=== PATIENT | male | born 1970 | race Caucasian/White ===

== ENCOUNTER → 2020-10-16 16:32 | Outpatient (CLI) | payer OTHER, SELFPAY ==
[2020-10-16 17:29] LABS: COVID19 -Nasal RAPID Negative (Negative)
== END ==
PROVIDERS: PCP Student in an Organized Health Care Education/Training Program; Visit Provider Physician Assistant
DX: Z20.822 Contact with and (suspected) exposure to COVID-19 (principal)
CPT/HCPCS: 87635

== ENCOUNTER 2020-10-18 13:30 | Day surgery (SDC) | payer OTHER, SELFPAY ==
--- NOTE | 2020-10-18 08:14 | P.HP_ITS ---
History of Present Illness History of Present Illness Date Patient Seen: 10/18/20 Chief complaint: SCREENING COLONOSCOPY Narrative: 50 Years Old Male seen today for consideration of a screening colonoscopy. There have been no lower GI symptoms suggesting disease such as change in bowel habits, bleeding, abdominal pain or anemia. There's been no family history of colon cancer or colon polyps. Overall health issues have been stable, including no major cardiac events for at least 6 weeks. Past Medical History: Plantar fasciitis history HYPERLIPIDEMIA ASTHMA, PERSISTENT, MODERATE Kleine-Dela Cruz syndrome SLEEP APNEA, OBSTRUCTIVE GOUT Obesity MOOD DISORDER SITUATIONAL STRESS ALLERGIC RHINITIS, SEASONAL VITAMIN D DEFICIENCY Non-drinker Past Surgical History: Appendectomy (08/2000) hernia 1977 Family History: Father: Rheumatoid arthritis Mother: Diabetes, Hypertension Siblings: Family Hx Diabetes Social History: Reviewed history from 08/14/2020 and no changes required: Marital Status: Leisa, 12/21/[birth year]-. Newly engaged. 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 Household Members: 3 daughters Meds Home Medications and Allergies Home Medications Medication Instructions Recorded Confirmed Type multivitamin [Multiple Vitamins] 1 tab PO QDAY #0 08/23/16 10/18/20 History cholecalciferol (vitamin D3) 100 mcg PO DAILY 10/18/20 10/18/20 History [Vitamin D3] fluoxetine 1 mg PO DAILY 10/18/20 10/18/20 History turmeric 3,000 mg PO DAILY 10/18/20 10/18/20 History Allergies Allergy/AdvReac Type Severity Reaction Status Date / Time carbamazepine Allergy Intermediate Unverified 10/18/20 14:02 Review of Systems Review of Systems ROS: Yes All systems reviewed with the patient and are negative except as otherwise documented Exam Narrative Exam Narrative: General: well developed, well nourished, in no acute distress, Head: normocephalic and atraumatic, Lungs: normal respiratory effort, clear bilaterally to auscultation, no wheezes rales or rhonchi. (unchanged from 08/14/2020) Heart: normal rate and regular rhythm, no murmurs, rubs, gallops, or clicks, Abdomen: abdomen soft and non-tender without masses, organomegaly, or abdominal wall hernias, bowel sounds positive. (unchanged from 08/14/2020) Skin: intact without suspicious lesions or rashes, Psych: alert and cooperative; normal mood and affect; normal attention span and concentration; cognition, remote and recent memory appear to be intact, Assessment & Plan Assessment & Plan narrative: 1. Screening for colon cancer Plan for colonoscopy. The nature and character of the procedure as well as anticipated results were discussed. The possibility of not completing the procedure was also discussed. Possible complications including aspiration pneumonia, bleeding, perforation and reaction to medications either for sedation or preparation and missed lesions were discussed. Questions were answered and proceeding to the colonoscopy was elected. Informed consent signed. I sincerely appreciate the referral allowing me to participate in this patient's care. Please contact me with any questions or concerns.
--- NOTE | 2020-10-18 08:15 | PM.OP.ENDO ---
Operative Date/Time/Diagnoses Date of procedure: 10/18/20 Procedure Notes SCOAP/Timeout: 2:28 p.m. Procedure in detail: ENDOSCOPIST: Winifred Mcintyre MD Sedation RN: César Gorman RN Sedation start time: 2:29 p.m. Sedation end time: 2:46 p.m. PROCEDURE: Colonoscopy INDICATIONS: 1. Screening for colon cancer MEDICATION: Levsin 0.125 mg sublingual, incremental doses of Versed and fentanyl until appropriate level sedation achieved. ASA CLASS: 2 CECAL WITHDRAWAL TIME: 10 minutes COMPLICATIONS: None. EXTENT OF PROCEDURE: Cecum. QUALITY OF PREP: Good with portions of liquid stool. PROCEDURE: Prior to insertion of the colonoscope, a digital rectal examination was accomplished with circumferential palpation of the distal rectal mucosa without significant findings being noted. The high-definition colonoscope was passed into the rectum in the usual fashion and advanced over to the cecum without difficulty. The ileocecal valve, appendiceal stoma, and medial wall all could be inspected and no abnormalities were seen. ASCENDING COLON: As the colonoscope was withdrawn, care was taken to expose and inspect the haustral folds and no abnormalities were seen. HEPATIC FLEXURE: Normal, no polyps, diverticula or other abnormalities. TRANSVERSE COLON: Normal, no polyps, diverticula or other abnormalities. DESCENDING COLON: Normal, no polyps, diverticula or other abnormalities. SIGMOID COLON: Normal, no polyps, diverticula or other abnormalities. RECTUM: Normal. J maneuver was produced. There was no significant perianal disease. The J maneuver was broken. The remainder of the rectum was inspected and there was no external hemorrhoid disease. The scope was withdrawn. IMPRESSION: 1. Normal colonoscopy PLAN: 1. Repeat colonoscopy in 10 years. The possibility of a missed lesion including a malignancy has been discussed with the patient previously. Potential alarm symptoms have been discussed and should be reported immediately.
[2020-10-18 14:11] VITALS: BP 150/96; PULSE 74; RESP 14; TEMP 36.2; O2SAT 97; BMI 79.0
[2020-10-18] MEDS: HYOSCYAMINE 0.125 MG TABLET PO (14:20)
[2020-10-18] MEDS: LACTATED RINGERS 1,000 ML 200 ML IV (14:21)
[2020-10-18] MEDS: MIDAZOLAM 5 MG/5 ML VIAL IV (14:29)
[2020-10-18] MEDS: fentaNYL 250 MCG/5 ML INJ IV (14:35)
[2020-10-18 14:51] VITALS: BP 132/89; PULSE 83; RESP 16; TEMP 36.6; O2SAT 94
[2020-10-18 14:57] VITALS: BP 126/90; PULSE 80; RESP 16; O2SAT 95
[2020-10-18 15:02] VITALS: BP 135/86; PULSE 71; RESP 16; TEMP 36.1; O2SAT 95
== END 2020-10-18 15:12 | disposition home or self-care (01) ==
PROVIDERS: PCP Student in an Organized Health Care Education/Training Program; Referring Provider Student in an Organized Health Care Education/Training Program; Visit Provider Student in an Organized Health Care Education/Training Program
PROC: 0DJD8ZZ Inspection of Lower Intestinal Tract, Via Natural or Artificial Opening Endoscopic (ICD-10-PCS; CPT 45378; principal; 2020-10-18 14:30)
DX: Z12.11 Encounter for screening for malignant neoplasm of colon (principal); J45.909 Unspecified asthma, uncomplicated; G47.33 Obstructive sleep apnea (adult) (pediatric); E66.9 Obesity, unspecified
CPT/HCPCS: 45378; J2250; J3010

== ENCOUNTER → 2021-01-17 14:54 | Outpatient (CLI) | payer OTHER, SELFPAY ==
[2021-01-17] MEDS: COVID-19 VACC, Ad26(JANSSEN)/PF 0.5 ML IM (15:03)
== END ==
PROVIDERS: PCP Student in an Organized Health Care Education/Training Program; Visit Provider Internal Medicine
DX: Z23 Encounter for immunization (principal)
CPT/HCPCS: 0031A; 91303

== ENCOUNTER → 2022-03-13 11:24 | Outpatient (CLI) | payer OTHER, SELFPAY ==
[2022-03-13 11:58] LABS: Add Manual Diff / Slide Review NO; Basophils Absolute Auto 0 /uL (0-100); Basophils Percent Auto 0.6 % (0-2); Eosinophils Absolute Auto 100 /uL (0-450); Eosinophils Percent Auto 1.3 % (2-4); Hematocrit 47.9 % (41-53); Hemoglobin 16.6 g/dL (13.5-17.5); Lymphocytes Absolute Auto 1800 /uL (1100-4500); Lymphocytes Percent Auto 34.3 % (25-40); Mean Corpuscular HGB Conc 34.6 % (30-36); Mean Corpuscular Hemoglobin 30.5 PG (26-34); Mean Corpuscular Volume 88.2 fL (80-100); Monocytes Absolute Auto 600 /uL (0-900); Monocytes Percent Auto 11.3 % (3-14); Neutrophils Absolute Auto 2700 /uL (1500-7000); Neutrophils Percent Auto 52.5 % (50-75); Platelet Count 190 X10^3/uL (150-400); Red Blood Cell Count 5.44 X10^6/uL (4.5-5.9); Red Cell Distribution Width 13.1 % (11.6-14.8); White Blood Cell Count 5.1 X10^3/uL (4.5-11.0)
[2022-03-13 13:09] LABS: Alanine Aminotransferase 56 IU/L (<50); Albumin 4.5 g/dL (3.5-5.0); Albumin Globulin Ratio 1.5 (1.0-2.8); Alkaline Phosphatase 55 U/L (38-126); Aspartate Aminotransferase 44 IU/L (17-59); Blood Urea Nitrogen 16 mg/dL (9-20); Carbon Dioxide 30 mmol/L (22-32); Chloride 101 mmol/L (98-107); Estimated Glomerular Filt Rate > 60 mL/min (>60); Glucose 127 mg/dL (70-100); HEMOLYSIS < 15 (0-50); Potassium 4.3 mmol/L (3.4-5.1); Sodium 138 mmol/L (137-145); Total Protein 7.5 g/dL (6.3-8.2)
[2022-03-13 13:40] LABS: Prostate Specific Antigen Scrn 0.251 ng/mL (0.1-4.0)
[2022-03-26 17:10] LABS: Vitamin D 25 Hydroxy (D3) 59.6 ng/mL (30.0-100.0)
== END ==
PROVIDERS: PCP Family Medicine; Referring Provider Family Medicine; Visit Provider Family Medicine
DX: E66.9 Obesity, unspecified (principal); Z12.5 Encounter for screening for malignant neoplasm of prostate; E55.9 Vitamin D deficiency, unspecified
CPT/HCPCS: 36415; 80053; 82306; 83036; 84443; 85025; G0103

== ENCOUNTER → 2022-06-09 14:54 | Outpatient (CLI) | payer OTHER, SELFPAY ==
--- NOTE | 2022-06-17 11:29 | DIAB.MNT ---
Initial Diabetes Medical Nutrition Therapy Assessment Name: Franco Zapien Date: 06/09/22 Time: 305-405p Dx: Type II Diabetes Provider: Elizabeth Florentino Learning Style: Franco presents today for initial visit regarding new dx of T2DM. +FH of DM with mother. 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 His currently lives separately temporarily for her child?s school. She helps him with meals on weekends. Endorses struggling with cooking for himself. States though his is very supportive and healthy, he feels he is ?not a veggie eater?. Has reduced sugar intake opting for sf candy. Supplements with Metamucil for fiber Recent change in custody of his children to their mother. States he should be able to better control what foods are available in the home. Diet Recall: Wakes at 530acoffee with 1/4-1/3 sweetened creamer 1130a:meat, cheese, ww bread, low carb somali yogurt, 1c peaches, nuts, cheese, cranberries, and apple or banana (80-100g CHO) 2-3p: nothing or bar (20-30g CHO) 6-7p: frozen dinners or [employer] lasagna x 3c or 2 corndog with chili and 16oz milk or cereal (45-90g CHO) Snack: nothing or sf chocolate Beverages: 26oz x 2 water, sf soda, milk q other day Anthropometrics: Ht: 69 Wt: 255.7# Repors -12# since Ozempic and diet changes, though feels he is at a plateau. Physical Activity: States he knows with his job he must make effort to be active. Reports 1-2 mi walks q day at work on a track. 2mi walks with dog daily + yardwork. Averages 6000 steps per day in May. Today 7600 steps. Self-Monitoring Blood Glucose: Checking FBG only. All in goal. No pc readings for review. Recent FB, 119, 120, 116, 116, 99, 118 (today). One pre dinner of 104 mg/dL yesterday. Diabetes Medications: 500mg Metformin ER HS Ozempic 0.5 mg per week (feeling nausea and some constipation) Pertinent Labs: 03/30 hgA1c 7% Nutrition Rx: Carbohydrates: Meal: 45-60g Snack:15-30g Nutrition Diagnosis: - Excessive CHO intake r/t long period before eating first meal and nutrition knowledge deficit aeb diet recall and pt report - Self monitoring deficit r/t knowledge deficit aeb no pc readings Intervention: This participant was very receptive. Provided appropriate educational handouts. Discussed the following topics: Completed intake assessment. Discussed barriers to care. Pathophysiology of T2DM HgA1c, its correlation to blood glucose numbers, and rationale for goal Importance of self-monitoring, how often, and when to check. Suggested checking at different times to evaluate meals Plate Method, impact of macronutrients on blood sugar, meal timing, carbohydrate counting, pairing macronutrients and spreading out carbohydrates for better blood glucose management Recommended servings for carbohydrates at meals and snacks Heart health nutrition Vegetables he enjoys and ways to incorporate Brainstormed appropriate meal plan based on food preferences Role of physical activity and following provider guidelines for safety Created SMART goals for patient self-care and success. Goals: Measure carb portions Add morning snack to reduce time before first meal Check some 1-2 hr pc readings Add vegetables to dinner Follow-up: [facility] follow-up in 2-3 weeks Eva Tyson RDN, JOSEPH Certified Diabetes Care and Embryology Professor P: [phone] Thank you for this referral
== END ==
PROVIDERS: PCP Family Medicine; Referring Provider Family Medicine; Visit Provider Family Medicine
DX: E11.9 Type 2 diabetes mellitus without complications (principal); Z79.84 Long term (current) use of oral hypoglycemic drugs; Z71.3 Dietary counseling and surveillance; Z79.85 Long-term (current) use of injectable non-insulin antidiabetic drugs
CPT/HCPCS: 97802

== ENCOUNTER 2022-10-08 21:39 | Emergency (ER) | payer OTHER, SELFPAY ==
[2022-10-08 21:48] VITALS: BP 195/101; PULSE 72; RESP 20; TEMP 36.3; O2SAT 98; BMI 34.5
[2022-10-08] MEDS: ONDANSETRON 4 MG/2 ML INJ IV (22:09)
[2022-10-08 22:15] LABS: Add Manual Diff / Slide Review NO; Basophils Absolute Auto 0 /uL (0-100); Basophils Percent Auto 0.2 % (0-2); Eosinophils Absolute Auto 0 /uL (0-450); Eosinophils Percent Auto 0.1 % (2-4); Hematocrit 48.2 % (41-53); Hemoglobin 16.5 g/dL (13.5-17.5); Lymphocytes Absolute Auto 1000 /uL (1100-4500); Lymphocytes Percent Auto 8.1 % (25-40); Mean Corpuscular HGB Conc 34.2 % (30-36); Mean Corpuscular Hemoglobin 29.9 PG (26-34); Mean Corpuscular Volume 87.2 fL (80-100); Monocytes Absolute Auto 800 /uL (0-900); Monocytes Percent Auto 6.4 % (3-14); Neutrophils Absolute Auto 10600 /uL (1500-7000); Neutrophils Percent Auto 85.2 % (50-75); Platelet Count 182 X10^3/uL (150-400); Red Blood Cell Count 5.53 X10^6/uL (4.5-5.9); Red Cell Distribution Width 13.3 % (11.6-14.8); White Blood Cell Count 12.5 X10^3/uL (4.5-11.0)
[2022-10-08 22:26] LABS: Alanine Aminotransferase 31 IU/L (<50); Albumin 4.9 g/dL (3.5-5.0); Albumin Globulin Ratio 1.4 (1.0-2.8); Alkaline Phosphatase 53 U/L (38-126); Aspartate Aminotransferase 34 IU/L (17-59); BUN Creatinine Ratio 18.6 (6-22); Bilirubin Total 1.2 mg/dL (0.2-1.3); Blood Urea Nitrogen 19 mg/dL (9-20); Calcium 9.4 mg/dL (8.4-10.2); Carbon Dioxide 27 mmol/L (22-32); Chloride 100 mmol/L (98-107); Estimated Glomerular Filt Rate > 60 mL/min (>60); Globulin 3.4 g/dL (1.7-4.1); Glucose 149 mg/dL (70-100); HEMOLYSIS 18 (0-50); Lipase 99 U/L (23-300); Sodium 137 mmol/L (137-145); Total Protein 8.3 g/dL (6.3-8.2)
[2022-10-08] MEDS: KETOROLAC 30 MG/ML VIAL 15 MG IV (22:52)
[2022-10-08] MEDS: SODIUM CHLORIDE 0.9% 1,000 ML 1000 ML IV (22:52)
--- NOTE | 2022-10-08 23:08 | DI.CT.S_ITS ---
PROCEDURE: CT KIDNEY URETER BLADDER (KUB) INDICATIONS: severe R flank pain TECHNIQUE: Axial sections were acquired from the lung bases to the pubic symphysis. Coronal and sagittal reformats were performed. For radiation dose reduction, the following was used: automated exposure control, adjustment of mA and/or kV according to patient size. COMPARISON: None. FINDINGS: Image quality: Excellent. Lung bases: There is minimal atelectasis. Heart: Heart is normal in size. URINARY: Right Kidney and Ureter: There is a 0.2 cm stone within the distal right ureter with associated right hydroureteronephrosis as well as perinephric and periureteral fat stranding. No additional renal stones identified. Left Kidney and Ureter: No stones. There is mild nonspecific perinephric stranding. No hydroureter. Bladder: Urinary bladder is partially distended. No stones. ABDOMEN: Liver: Noncontrast evaluation of the liver demonstrates no discrete mass. Gallbladder: Within normal limits without calcified gallstones. Biliary ducts: No biliary ductal dilatation. Pancreas: Unremarkable. Spleen: Normal in size. Adrenal Glands: No adrenal nodules. Stomach and Bowel: Stomach, small bowel loops, and colon are normal in caliber and wall thickness. No pericecal inflammatory changes to suggest appendicitis. Peritoneum: No abnormal intraperitoneal fluid. No free air. Ventral Wall: No hernia. Abdominal Nodes: No retroperitoneal or mesenteric adenopathy by size criteria. Vessels: Aorta and inferior vena cava are normal in size. PELVIS: Pelvic Organs: Unremarkable. Pelvic Nodes: No enlarged lymph nodes. Miscellaneous: No inguinal hernias identified. Bones: Visualized osseous structures demonstrate no suspicious focal lesions. IMPRESSION: 1. Obstructing urinary stone in the distal right ureter with associated mild right hydroureteronephrosis. Dictated by: Chang Paula M.D. on 10/09/2022 at 0:06 Approved by: Chang Paula M.D. on 10/09/2022 at 0:10
[2022-10-08] MEDS: LIDOCAINE 2% (PF) 8 ML in SODIUM CHLORIDE 0.9% 50 ML 348 ML IV (23:32)
--- NOTE | 2022-10-09 00:11 | ED.ABDPAIN ---
HPI - Abdominal Pain General Chief Complaint: Abdominal Pain Stated Complaint: rt sided abd pain Time Seen by Provider: 10/08/22 22:17 Source: patient Mode of arrival: Ambulatory History of Present Illness HPI narrative: 52-year-old male nonsmoker with noncontributory medical history presents with his significant other and a chief complaint of colicky type right flank pain over the course of the day. He denies any obvious provocation or palliation. He does state that it radiates around his right side on occasion. He does state that he has been urinating more than normal. He is had no fever or chills. He has been nauseated but denies any vomiting. He denies any diarrhea or constipation. Related Data Home Medications Medication Instructions Recorded Confirmed multivitamin (Multiple Vitamins 1 tab PO QDAY ##0 08/23/16 10/18/20 tablet) cholecalciferol (vitamin D3) 100 100 mcg PO DAILY 10/18/20 10/18/20 mcg (4,000 unit) capsule (Vitamin D3) fluoxetine 20 mg capsule 1 mg PO DAILY 10/18/20 10/18/20 turmeric 400 mg capsule 3,000 mg PO DAILY 10/18/20 10/18/20 Previous Rx's Medication Instructions Recorded hydrocodone 5 mg-acetaminophen 325 1 tab PO Q4-6H PRN pain #10 tabs 10/09/22 mg tablet ketorolac 10 mg tablet 10 mg PO Q6H PRN pain #14 tabs 10/09/22 ondansetron 4 mg disintegrating 4 mg PO TID-QID PRN nausea and 10/09/22 tablet vomiting #10 tabs tamsulosin 0.4 mg capsule (Flomax) 0.4 mg PO DAILY #30 caps 10/09/22 Allergies Allergy/AdvReac Type Severity Reaction Status Date / Time carbamazepine Allergy Intermediate Verified 10/08/22 22:08 Review of Systems Review of Systems Narrative: GENERAL: Denies chills, fatigue, malaise, fever, sweats. HEENT: Denies sinus pain, ear pain, sore throat, difficulty swallowing, dizziness. RESPIRATORY: Denies dyspnea, cough, wheezing, hemoptysis, sputum. CARDIOVASCULAR: Denies chest pain, palpitations, orthopnea, edema, GASTROINTESTINAL: Denies nausea, vomiting, abdominal pain, diarrhea, constipation, melena. : See HPI MUSCULOSKELETAL: See HPI SKIN: Denies rash, skin lesions, or other NEUROLOGIC: Denies weakness, headache, numbness, change in speech, confusion, seizures, incoordination. PSYCHIATRIC: No concerning psychosocial issues. 12 point review of systems is negative except for those stated above Patient History Social History (System 01/15/21 @ 10:38 by Coral Lopez) household members: other Smoking Status: Never smoker alcohol intake: never Smoking Status: Never smoker alcohol intake frequency: 0-2 drinks per day Substance Use Type: does not use Exam Initial Vital Signs Initial Vital Signs: Vital Signs Temperature 97.3 F L 10/08/22 21:48 Pulse Rate 72 10/08/22 21:48 Respiratory Rate 20 10/08/22 21:48 Blood Pressure 195/101 H 10/08/22 21:48 Pulse Oximetry 98 10/08/22 21:48 Oxygen Delivery Method Room Air 10/08/22 21:48 Course Orders Ordered: Discontinued Medications Hydrocodone Bitart/Acetaminophen (Hydrocodone/Acet 5/325 Prepack) 1 bottle MISC SEEINSTR ONE Stop: 10/09/22 00:42 Last Admin: 10/09/22 01:01 Dose: 1 bottle Documented By: RB Sodium Chloride (Normal Saline 0.9%) 1,000 mls @ 1,000 mls/hr IV BOLUS ONE Stop: 10/08/22 23:26 Last Infusion: 10/08/22 23:52 Dose: 0 mls/hr Documented By: Admin: 10/08/22 22:52 Dose: 1,000 mls/hr Documented By: GC Lidocaine HCl 8 ml/ Sodium (Chloride) 58 mls @ 348 mls/hr IV NOW ONE Stop: 10/08/22 23:23 Last Infusion: 10/08/22 23:43 Dose: 0 mls/hr Documented By: Admin: 10/08/22 23:32 Dose: 348 mls/hr Documented By: GC Ketorolac Tromethamine (Ketorolac 30 Mg/Ml Vial) 15 mg IV NOW ONE Stop: 10/08/22 22:28 Last Admin: 10/08/22 22:52 Dose: 15 mg Documented By: GC Ondansetron HCl (Ondansetron 4 Mg Odt) 4 mg PO NOW PRN PRN Reason: Nausea And Vomiting Ondansetron HCl (Ondansetron 4 Mg/2 Ml Inj) 4 mg IV NOW PRN PRN Reason: Nausea And Vomiting Last Admin: 10/08/22 22:09 Dose: 4 mg Documented By: ARTUR Ondansetron HCl (Ondansetron 4 Mg Odt Prepack) 1 bottle MISC SEEINSTR ONE Stop: 10/09/22 00:42 Last Admin: 10/09/22 01:01 Dose: 1 bottle Documented By: RB Tamsulosin HCl (Tamsulosin 0.4 Mg Capsule) 0.4 mg PO NOW ONE Stop: 10/09/22 00:42 Last Admin: 10/09/22 01:00 Dose: 0.4 mg Documented By: RB Reevaluation(s) Reevaluation #1: Moderate improvement after Toradol but less less than half an hour, pain coming back Reevaluation #2: More improvement after lidocaine drip Vital Signs Vital signs: Vital Signs - 8 hr 10/08/22 21:48 Temperature 97.3 F L Pulse Rate 72 Respiratory Rate 20 Blood Pressure 195/101 H Pulse Oximetry 98 Oxygen Delivery Method Room Air MDM - Abdominal Pain Lab Data 10/08/22 22:01 10/08/22 22:01 Labs: Lab Results 10/08/22 10/08/22 Range/Units 22:01 22:01 WBC 12.5 H (4.5-11.0) X10^3/uL RBC 5.53 (4.5-5.9) X10^6/uL Hgb 16.5 (13.5-17.5) g/dL Hct 48.2 (41-53) % MCV 87.2 (80-100) fL MCH 29.9 (26-34) PG MCHC 34.2 (30-36) % RDW 13.3 (11.6-14.8) % Plt Count 182 (150-400) X10^3/uL Neut % (Auto) 85.2 H (50-75) % Lymph % (Auto) 8.1 L (25-40) % [place] % (Auto) 6.4 (3-14) % Eos % (Auto) 0.1 L (2-4) % Baso % (Auto) 0.2 (0-2) % Neut # (Auto) 32021 H (4192-4945) /uL Lymph # (Auto) 1000 L (0304-0660) /uL [place] # (Auto) 800 (0-900) /uL Eos # (Auto) 0 (0-450) /uL Baso # (Auto) 0 (0-100) /uL Sodium 137 (137-145) mmol/L Potassium 4.0 (3.4-5.1) mmol/L Chloride 100 (98-107) mmol/L Carbon Dioxide 27 (22-32) mmol/L BUN 19 (9-20) mg/dL Creatinine 1.02 (0.66-1.25) mg/dL Estimated GFR > 60 (>60) mL/min BUN/Creatinine Ratio 18.6 (6-22) Glucose 149 H (70-100) mg/dL Calcium 9.4 (8.4-10.2) mg/dL Total Bilirubin 1.2 (0.2-1.3) mg/dL AST 34 (17-59) IU/L ALT 31 (<50) IU/L Alkaline Phosphatase 53 (38-126) U/L Total Protein 8.3 H (6.3-8.2) g/dL Albumin 4.9 (3.5-5.0) g/dL Globulin 3.4 (1.7-4.1) g/dL Albumin/Globulin Ratio 1.4 (1.0-2.8) Lipase 99 (23-300) U/L Point of care testing: Urine Dip Bedside Urine Glucose Negative Bedside Urine Bilirubin - Negative Bedside Urine Ketone +++ 80 Urine Specific [place] 1.025 Bedside Urine Occult Blood +++ Bedside Urine pH 6.0 Bedside Urine Protein - Negative Bedside Urine Urobilinogen - Negative Bedside Urine Nitrite - Negative Bedside Urine Leukocytes - Negative Esterase MDM Narrative Medical decision making narrative: CC: 52-year-old male with right flank pain Complicating co-morbidities: Age Data collected from: Patient Medical records reviewed: Prior notes reviewed in our EMR Differential considered, but not limited to: Musculoskeletal, kidney stone, pyelonephritis, gallbladder disease versus other Exam documented above, pertinent findings include: No significant reproducible pain on palpation of right flank, no right upper quadrant or epigastric pain, abdomen soft, bowel sounds present Lab Test results independently reviewed as above. Pertinent findings: Urine with blood, no evidence of infection. Slight increase in white blood cells and minimal relative left shift Independently reviewed EKG as above Imaging studies independently reviewed: Right-sided kidney stone Treatments: Saline, hydrocodone Zofran Re-evaluations: Significant improvement Discussion: 52-year-old male with sudden onset colicky right flank pain and radiation to his groin has hematuria in the absence of infection, reassuring serum lab work without electrolyte or renal abnormalities. Imaging demonstrates 2 mm stone with associated hydro. Patient is well controlled, no signs of sepsis, patient tolerating orals, no signs of infection. Patient appropriate for discharge Disposition: see below, along with detailed discharge instructions that have been reviewed with patient as well as indications for ED re-evaluation and additional outpatient follow up Discharge Plan Departure Patient Disposition: Home Clinical Impression: Kidney calculi Instructions: DI for Kidney Stones Activity Restrictions/Additional Instructions: *You have been diagnosed with [right-sided kidney stone] *What to do: *Please continue to take your regular medications as directed. [x ] New medication prescriptions sent to your pharmacy: [ [facility]] [ ] New medication written as a paper prescription [ ] No new medications given *Please follow up with your primary care provider in 2-3 days, call for an appointment. Let them know you were seen in the Emergency Department and that we ask that you be seen in follow up. We will electronically transmit a record of today's note if your PCP is in our system *If you do not have a primary care provider please contact the [facility] Resource line at [phone]. They will ask some questions about your medical history and help get you set up with a doctor in the community. *Return to Emergency Department if you should have any new, worsening or concerning symptoms, such as [fever greater than 101 F, shaking chills, worsening pain, persistent vomiting or other bothersome symptoms] Prescriptions: New hydrocodone-acetaminophen 5-325 mg tablet 1 tab PO Q4-6H PRN (Reason: pain) Qty: 10 0RF ketorolac 10 mg tablet 10 mg PO Q6H PRN (Reason: pain) Qty: 14 0RF tamsulosin [Flomax] 0.4 mg capsule 0.4 mg PO DAILY Qty: 30 0RF ondansetron 4 mg tablet,disintegrating 4 mg PO TID-QID PRN (Reason: nausea and vomiting) Qty: 10 0RF No Action multivitamin [Multiple Vitamins] 1 EACH tablet 1 tab PO QDAY Qty: 0 fluoxetine 20 mg capsule 1 mg PO DAILY Vitamin D3 100 mcg (4,000 unit) Capsule 100 mcg PO DAILY turmeric 400 mg Capsule 3,000 mg PO DAILY Referrals: Rober Logan MD [Physician] - Les Johnson MD [Primary Care Provider] - Stand Alone Forms: Patient Portal/API
[2022-10-09] MEDS: TAMSULOSIN 0.4 MG CAPSULE PO (01:00)
[2022-10-09] MEDS: ONDANSETRON 4 MG ODT PREPACK 1 BOTTLE MISC (01:01)
[2022-10-09] MEDS: HYDROCODONE/ACET 5/325 PREPACK 1 BOTTLE MISC (01:01)
[2022-10-09 01:15] VITALS: BP 144/78; PULSE 74; RESP 16; TEMP 36.6; O2SAT 98
== END 2022-10-09 01:17 | disposition home or self-care (01) ==
PROVIDERS: Emergency Provider Emergency Medicine; PCP Family Medicine
DX: N20.0 Calculus of kidney (principal)
CPT/HCPCS: 36415; 74176; 80053; 81003; 83690; 85025; 93005; 96361; 96374; 96375; 99284; J1885; J2405